=== PATIENT | female | born 1955 | race Caucasian/White ===

== ENCOUNTER 2016-06-28 12:32 | Day surgery (SDC) | payer BC, SELFPAY ==
--- NOTE | ~2016-06-28 | EGD ---
EGD REPORT [facility] [address] [id number] NAME: HAILEY COCHRAN : 51 STATUS : [facility] [place] PAT#: [id number] AGE: 61 ADM/REG DATE : 06/28/16 MR#: [id number] REPORT SERV DATE: 06/28/16 DICTATED BY: JAYLEN PRADO DATE: 06/28/16 REPORT STATUS : Draft TRANSCRIBED BY: [facility] DATE: 06/28/16 Endoscopy Center Patient Name: Hailey Cochran Date of : 1955 Attending MD: JAYLEN PRADO MD Procedure Date No Time: 06/28/2016 Procedure: Upper GI endoscopy Indications: Epigastric abdominal pain, Abdominal pain in the right upper quadrant Referring MD: MARILUZ ARZATE MD Medicines: Monitored Anesthesia Care Complications: No immediate complications. Procedure: Pre-Anesthesia Assessment: - ASA Grade Assessment: II - A patient with mild systemic disease. After obtaining informed consent, the endoscope was passed under direct vision. Throughout the procedure, the patient's blood pressure, pulse, and oxygen saturations were monitored continuously. The GIF [id number] was introduced through the mouth, and advanced to the second part of duodenum. The upper GI endoscopy was accomplished without difficulty. The patient tolerated the procedure well. Findings: The Z-line was irregular and was found at the gastroesophageal junction. Biopsies were taken with a cold forceps for histology. A small hiatus hernia was present. Localized mildly erythematous mucosa without bleeding was found in the gastric antrum. Biopsies were taken with a cold forceps for histology. The cardia and gastric fundus were normal on retroflexion. The duodenal bulb and 2nd part of the duodenum were normal. Biopsies were taken with a cold forceps for histology. Impression: - Z-line irregular, at the gastroesophageal junction. Biopsied. - Hiatus hernia. - Erythematous mucosa in the antrum. Biopsied. - Normal duodenal bulb and 2nd part of the duodenum. Biopsied. Recommendation: - Patient has a contact number available for emergencies. The signs and symptoms of potential delayed complications were discussed with the patient. Return to normal activities tomorrow. Written discharge EGD REPORT [address] [address] NAME: HAILEY COCHRAN : 51 STATUS : [facility] [place] PAT#: [id number] AGE: 61 ADM/REG DATE : 06/28/16 MR#: [id number] REPORT SERV DATE: 06/28/16 DICTATED BY: JAYLEN PRADO DATE: 06/28/16 REPORT STATUS : Draft TRANSCRIBED BY: [employer] DATE: 06/28/16 instructions were provided to the patient. - Regular diet. - Continue present medications. - Return to GI clinic in 4 weeks. - Await pathology results. Procedure Code(s): --- Professional --- 44367, Esophagogastroduodenoscopy, flexible, transoral; with biopsy, single or multiple Diagnosis Code(s): --- Professional --- K22.8, Other specified diseases of esophagus K44.9, Diaphragmatic hernia without obstruction or gangrene K31.9, Disease of stomach and duodenum, unspecified R10.13, Epigastric pain R10.11, Right upper quadrant pain CPT copyright 2013 [employer]. All rights reserved. The codes documented in this report are preliminary and upon traffic operations engineer review may be revised to meet current compliance requirements. JAYLEN PRADO MD 06/28/2016 3:30 PM This report has been signed electronically. Number of Addenda: 0 Note Initiated On: 06/28/2016 3:00 PM Scope Withdrawal Time 0 hours 0 minutes 0 seconds [address] [id number]
[~2016-06-28 12:32] MED LIST: ALEVE220 MG PO; CRESTOR10 PO; MUCINEX600 MG PO; MULTIVIT/MIN PO; MUSCLE RELAXANT PO; OS500+D PO; ZYRTEC ALLGY10 MG PO
[2016-10-03] MEDS ORDERED: ALIGN4 MG PO (12:44)
[2016-10-03] MEDS ORDERED: NEXIUM20 M1 PO (12:44)
[2016-10-03] MEDS ORDERED: [UNRECOGNIZED DRUG - OTHER] PO (12:45)
[2016-10-03] MEDS ORDERED: PEPTO-BISMOL262 MG PO (12:45)
[2016-10-03] MEDS ORDERED: ESTROGEN PELLETS (12:47)
[2016-10-04] MEDS ORDERED: P5 PO (09:38)
[2016-12-06] MEDS ORDERED: PREDNISONE (08:53)
== END 2016-06-28 23:59 | disposition home or self-care (01) ==
LOC: DMU 12:32
PROVIDERS: Internal Medicine Gastroenterology
PROC: 0DB98ZX Excision of Duodenum, Via Natural or Artificial Opening Endoscopic, Diagnostic (ICD-10-PCS; 2016-06-28)
PROC: 0DB68ZX Excision of Stomach, Via Natural or Artificial Opening Endoscopic, Diagnostic (ICD-10-PCS; 2016-06-28)
PROC: 0DB48ZX Excision of Esophagogastric Junction, Via Natural or Artificial Opening Endoscopic, Diagnostic (ICD-10-PCS; principal; 2016-06-28 14:00)
DX: K29.50 Unspecified chronic gastritis without bleeding (principal); K44.9 Diaphragmatic hernia without obstruction or gangrene; K22.8 Other specified diseases of esophagus; K21.9 Gastro-esophageal reflux disease without esophagitis; I10 Essential (primary) hypertension; E78.00 Pure hypercholesterolemia, unspecified; F41.9 Anxiety disorder, unspecified; M19.90 Unspecified osteoarthritis, unspecified site; Z88.5 Allergy status to narcotic agent; Z79.1 Long term (current) use of non-steroidal anti-inflammatories (NSAID); Z79.899 Other long term (current) drug therapy; Z90.710 Acquired absence of both cervix and uterus
CPT/HCPCS: 88305; 88312; 88342